=== PATIENT | female | born 1945 | race Caucasian/White ===

== ENCOUNTER 2018-01-03 16:28 | Emergency (ER) | payer BC, OTHER ==
[~2018-01-03] VITALS: Ht 172.7 cm; Wt 95.3 kg
[2018-01-03 18:31] LABS: BASOPHILS # (AUTO) 0.1 K/uL (0.0-8.0); BASOPHILS % (AUTO) 0.9 % (0.0-2.0); EOSINOPHILS # (AUTO) 0.8 K/uL (0.0-0.7); EOSINOPHILS % (AUTO) 7.9 % (0.0-7.0); HEMATOCRIT 35.6 % (31.2-41.9); LYMPHOCYTES # (AUTO) 2.9 K/uL (20.0-40.0); LYMPHOCYTES % (AUTO) 29.6 % (20.5-51.5); MEAN CORPUSCULAR HEMOGLOBIN 31.1 uug (24.7-32.8); MEAN CORPUSCULAR HGB CONC 34 g/dL (32.3-35.6); MEAN CORPUSCULAR VOLUME 92.3 fL (75.5-95.3); MONOCYTES # (AUTO) 0.9 K/uL (2.0-10.0); MONOCYTES % (AUTO) 8.9 % (0.0-11.0); NEUTROPHILS # (AUTO) 5.2 K/uL (1.8-8.9); NEUTROPHILS % (AUTO) 52.7 % (38.5-71.5); PLATELET COUNT (AUTO) 340 K/uL (179-408); RED BLOOD CELL COUNT(AUTO) 3.85 MIL/uL (3.63-4.92); WHITE BLOOD COUNT (AUTO) 9.9 K/uL (3.8-11.8)
[2018-01-03 18:40] LABS: CREATININE 1.1 mg/dL (0.6-1.3); POTASSIUM 4.3 mmol/L (3.5-5.1)
--- NOTE | 2018-01-03 19:14 | NUR ---
Patient discharged to home in stable conditon. Written and verbal after care instructions given. Patient verbalizes understanding of instructions.PT WALKS IN STEADY GAIT. PT SAYS FEELS BETTER, PT DENEIS ANY SOB., N/V , DIZZINESSS OR CP AT THIS TIME.
[2018-01-03 19:17] VITALS: BP 160/69
== END 2018-01-03 19:17 | disposition home or self-care (01) ==
LOC: ER 16:31
DX: S29.011A Strain of muscle and tendon of front wall of thorax, initial encounter (principal); X58.XXXA Exposure to other specified factors, initial encounter; Y93.89 Activity, other specified; Y92.89 Other specified places as the place of occurrence of the external cause; Y99.8 Other external cause status; I10 Essential (primary) hypertension; E78.00 Pure hypercholesterolemia, unspecified; Z88.8 Allergy status to other drugs, medicaments and biological substances
CPT/HCPCS: 36415; 71101; 80048; 84484; 85025; 85730; 93005; 99285; A4663; 70030-TC